=== PATIENT | female | born 1970 | race Caucasian/White ===

== ENCOUNTER 2017-03-20 11:07 | Emergency (ER) | payer OTHER ==
[2017-03-20 12:47] VITALS: BP 112/81
[2017-03-20] MEDS ORDERED: HYDROcodone/ACETAMIN 5-325 MG* 1 TAB PO ONE (13:27)
--- NOTE | 2017-03-20 13:35 | UC ---
Malachi Hurley Salem, scribed for Muna Kitchen MD on 03/20/17 at 1316 . Back Pain HPI - HPI Summary HPI Summary: Patient is 46 y/o female who presents to the with 10/10 lower right sided back pain and back spasms for the past 24 hours. Pt has a hx of back pain (in the same location), but reports the last time it flared up was a few months ago prior to this episode. She states that she usually uses heat and cyclobenzaprine for the pain. Pt took 800mg of Ibuprofen (last one at 0830 today ) and 10mg cyclobenzaprine (last one at 1300 today) for the pain this time. She reports pulling a muscle yesterday with unknown cause, but may have occurred while doing laundry or when lighting her 26lbs daughter. She denies numbness and tingling down her legs, but experiences both in her hip. She reports weakness in legs unchanged from baseline and denies any changes in GIGU. PCP has previously sent her to physical therapy for sx. Pt has a PMHx of Lupus. Patients medication reviewed this visit. - History of Current Complaint Chief Complaint: UCBackPain Stated Complaint: BACK INJURY Time Seen by Provider: 03/20/17 13:00 Hx Obtained From: Patient Onset/Duration: Gradual Onset, Lasting Days, Still Present Timing: Constant Severity Initially: Moderate Severity Currently: Moderate Pain Intensity: 10 Pain Scale Used: 0-10 Numeric Back Pain: Is Discrete @ - Lower right side. Aggravating: Nothing Alleviating: Nothing Associated Signs And Symptoms: Positive: Numbness, Tingling, Other - Weakness in legs unchanged from baseline. Numbness and tingling in hip. - Allergies/Home Medications Allergies/Adverse Reactions: Allergies Allergy/AdvReac Type Severity Reaction Status Date / Time No Known Allergies Allergy Verified 03/20/17 12:47 PMH/Surg Hx/FS Hx/Imm Hx Previously Healthy: No - Lupus.. Cancer History Of: Denies: Breast Cancer - Surgical History Surgical History: Yes - c section. hysterectomy Surgery Procedure, Year, and Place: partial hysterectomy 2011 - Family History Known Family History: Negative: Hypertension, Diabetes - Social History Alcohol Use: Occasionally Substance Use Type: None Smoking Status (MU): Never Smoked Tobacco Review of Systems Constitutional: Negative Skin: Negative Eyes: Negative ENT: Negative Respiratory: Negative Cardiovascular: Negative Gastrointestinal: Negative Genitourinary: Negative Motor: Negative, Decreased ROM Neurovascular: Negative Musculoskeletal: Other: - Lower back pain. Neurological: Weakness - Legs - unchanged from baseline., Numbness - Numbness and tingling in hip, but no radiation to legs All Other Systems Reviewed And Are Negative: Yes Physical Exam Triage Information Reviewed: Yes Appearance: Well-Appearing, Well-Nourished, Pain Distress - Pain with movement Vital Signs: Initial Vital Signs Temp 98.5 F 03/20/17 12:44 Pulse 90 03/20/17 12:44 Resp 20 03/20/17 12:44 BP 112/81 03/20/17 12:44 Pulse Ox 100 03/20/17 12:44 Vital Signs Reviewed: Yes Eyes: Positive: Conjunctiva Clear ENT: Positive: Hearing grossly normal Neck exam: Normal Neck: Positive: Supple, Nontender, No Lymphadenopathy Respiratory Exam: Normal Respiratory: Positive: No respiratory distress, No accessory muscle use Cardiovascular: Positive: RRR, No Murmur, Pulses Normal, Brisk Capillary Refill Abdomen Description: Positive: Nontender, No Organomegaly, Soft Musculoskeletal Exam: Other - No pain spinous process c/t/l/s; + TTP lumbar paraspinal R>L Full AROM upper ext b/l + SLE b/l LE with increased discomfort right + abduct, adduct hips + flex/ext knee, ankle Neurological Exam: Normal Neurological: Positive: Alert, Muscle Tone Normal, Other: - + gross sensation throughout b/l LE No clonus patellar, achilles Psychological Exam: Normal Psychological: Positive: Normal Response To Family Back Pain Course/Dx - Course Course Of Treatment: PT with low back pain, spasm. TTP paraspinal R>L. Distal intact neurologically. istop checked. Will Rx Kimberly. heat. stretch. Pt has flexeril. work note - Differential Dx/Diagnosis Provider Diagnoses: lumbar back pain Discharge - Discharge Plan Condition: Stable Disposition: HOME Prescriptions: Hydrocodone-Acetaminophen [Kimberly 5-325 mg] 1 - 2 tab PO Q6HR #15 tab MDD 8 Patient Education Materials: Low Back Strain (ED) Forms: *Work Release Referrals: Roger Moreno MD [Primary Care Provider] - Additional Instructions: - Alternate ibuprofen (Advil, Motrin) 600mg and Tylenol product (Tylenol or Kimberly) every 3 hours for pain. Take with food. Do NOT drive, operate machinery or drink alcohol while taking Kimberly. Take with food. Do NOT take for more than 4 -5 days. - Take muscle relaxer as prescribed - Do not drive or operate machinery with the muscle relaxant or Kimberly - Apply heat - 20 minutes at a time - then slow, gentle stretching exercises several times a day - Walk a short distance several times a day - Avoid heavy lifting - Contact your doctor to schedule a follow-up appointment. Contact your doctor or return to urgent care or the emergency department if you develop increased pain, difficulty controlling your bowels or bladder, loss of feeling or muscle strength or any other concerns The documentation as recorded by the Malachi lee Salem accurately reflects the service I personally performed and the decisions made by me, Muna Kitchen MD.
== END 2017-03-20 13:42 | disposition home or self-care (01) ==
LOC: UCEAST 11:07
DX: M54.5 Low back pain (principal)
CPT/HCPCS: 99212; G0463

== ENCOUNTER 2018-02-13 11:31 | Emergency (ER) | payer OTHER ==
--- OUTSIDE RECORDS SUMMARY | 2018-02-13 11:42 | XMS REPORT ---
:1970 External Reference #:[id number] Author Organization [facility] Address [address] [place] [address] Phone [phone] Care Team Providers Name Role Phone Roger Moreno MD Primary Care Physician Unavailable Payers Type Date Identification Numbers Payment Provider Subscriber Commercial Policy Number: [id number] [employer] Lena Denton PayID: [id number] [address] [address] [place] [address] Problems Date Description Provider Status Onset: 05/14/2012 Sjogren's syndrome Chip Hopkins M.D. Active Note: overlap to lupsu 2006 skin bx lupus sicca sx, SSA, SSB pos 2006, 2009, 2010 leukopenia, sun sensitive, arthritis, jennifer pos Onset: 01/24/2018 Trochanteric bursitis Ivan Patel MD Active Onset: 08/15/2012 Medications Correction (Current) Use Chip Hopkins M.D. Active Encounter Onset: 08/15/2012 Systemic lupus erythematosus Chip Hopkins M.D. Active Family History Date Family Member(s) Problem(s) Comments General Brother had spleen taken out due to bruising General Hypertension Social History Type Date Description Comments Lives With Spouse Occupation Currently Working Cigarette Use Never Smoked Cigarettes ETOH Use Occasionally consumes alcohol Smoking Patient has never smoked Exercise Type/Frequency Exercises regularly Allergies, Adverse Reactions, Alerts Date Description Reaction Status Severity Comments 06/13/2011 NKDA active Medications Medication Date Status Form Strength Qnty SIG Indications Ordering Provider Ibuprofen 01/25/ Active Tablets 800mg 60tab Take one Z79.899 Ramy 2015 s capsule/ Rafael, tablet M.D. by mouth twice daily as needed for pain Hydroxychloroquine 01/25/ Active Tablets 200mg 90tab Take 1 Z79.899 Ramy Sulfate 2015 s Tablet Rafael, Every M.D. Day For 1 Week Then Take 2 Tablets Every Day [facility] / Active Capsules 2000Unit Mejia, 0000 Lucia, MANAGER [employer] Prednisone 03/14/ Hx Tablets 5mg 70tab 4 qd x 1 Chip 2011 week, 3 Endo, 08/15/ qd x 1 M.D. 2011 week, 2 qd x 1 week, 1 qd x 1 week Methotrexate 11/14/ Hx Tablets 2.5mg 30tab 6 tabs Chip 2010 1x per Endo, week M.D. 2016 Folic Acid 11/14/ Hx Tablets 1mg 30tab 1 po qd Chip 2010 Endo, 01/25/ M.D. 2016 Hydroxychloroquine 06/13/ Hx Tablets 200mg 60tab 1 po bid Chip Sulfate 2010 Endo, M.D. 2016 Restasis 06/13/ Hx Emulsion 0.05% 2unit one gtts 2010 ou bid Endo, 01/25/ M.D. 2016 Prednisone 06/13/ Hx Tablets 5mg 70tab 4 qd x 1 2010, 3 Endo, 11/14/ qd x 1 M.D. 2010, 2 qd x 1 week, 1 qd x 1 week Ibuprofen / Hx Tablets 800mg 90tab po tid Chip prn Endo, M.D. 2016 Amoxicillin/Clavulan / Hx Tablets 500-125mg 20tab 1 po bid Unknown ate Potassium 0000 - s 2010 Cyclobenzaprine HCL / Hx Tablets 10mg 60tab one po Unknown 0000 - s tid prn 01/25/ spasm 2016 Oxycodone HCL 0000/ Hx Tablets 10mg 120ta 1 tablet Unknown 0000 - bs po q6hrs 01/25/ prn 2015 Tramadol HCL / Hx Tablets 50mg 120ta qid prn Unknown 0000 - bs 2015 Prednisone / Hx Tablets 20mg 27tab 3 tab by Unknown 0000 - s mouth 01/25/ every 2016 day x3 days then 2 tab daily for 5 days, then 1 tab daily for 5 days then 1/2 tab daily for 5 days Prednisone / Hx Tablets 20 1 po qd Unknown 0000 - 2015 Medications Administered in Office Medication Date Status Form Strength Qnty SIG Indications Ordering Provider Triamcinolone 01/24/ Administered Injection Zaneb (Kenalog) 2017 MD Amanda Vital Signs Date Vital Result Comment 01/24/2018 Height 67 inches 5'7" Weight 163.00 lb BP Systolic 118 mmHg BP Diastolic 70 mmHg Respiratory Rate 18 /min Pain Level 6 BMI (Body Mass Index) 25.5 kg/m2 01/26/2016 Height 67 inches 5'7" Weight 163.38 lb Heart Rate 74 /min BP Systolic Sitting 100 mmHg BP Diastolic Sitting 68 mmHg Body Temperature 98.3 F Pain Level 3 BMI (Body Mass Index) 25.6 kg/m2 08/15/2012 Height 67 inches 5'7" Weight 155.00 lb Heart Rate 82 /min BP Systolic Sitting 108 mmHg BP Diastolic Sitting 66 mmHg BMI (Body Mass Index) 24.3 kg/m2 05/14/2012 Height 67 inches 5'7" Weight 155.00 lb Heart Rate 78 /min BP Systolic Sitting 121 mmHg BP Diastolic Sitting 68 mmHg BMI (Body Mass Index) 24.3 kg/m2 02/12/2012 Height 67 inches 5'7" Weight 151.00 lb Heart Rate 74 /min BP Systolic Sitting 120 mmHg BP Diastolic Sitting 71 mmHg BMI (Body Mass Index) 23.6 kg/m2 11/14/2011 Height 67 inches 5'7" Weight 149.00 lb Heart Rate 78 /min BP Systolic Sitting 123 mmHg BP Diastolic Sitting 71 mmHg BMI (Body Mass Index) 23.3 kg/m2 06/13/2011 Height 67 inches 5'7" Weight 152.00 lb Heart Rate 64 /min BP Systolic 110 mmHg BP Diastolic 70 mmHg BMI (Body Mass Index) 23.8 kg/m2 Results Test Date Test Result H/L Range Note Laboratory test finding 02/04/2016 Vitamin D, 1,25 48 pg/mL 18-78 1 Dihydroxy Urine Culture And 02/04/2016 Urine Culture SEE RESULT BELOW 2 Sensitivities Urinalysis Profile 02/04/2016 Urine Color Yellow Urine Appearance Clear Urine Specific [place] 1.025 1.010-1.030 Urine pH 5.0 5-9 Urine Urobilinogen Negative Negative Urine Ketones Negative Negative Urine Protein Negative Negative Urine Leukocytes Negative Negative Urine Blood Negative Negative Urine Nitrite Negative Negative Urine Bilirubin Negative Negative Urine Glucose Negative Negative Laboratory test finding 02/04/2016 Anti Ssa/Ro 2.6 U 3 Anti SSB LA >8.0 U 4 C Reactive Protein 2.18 mg/L < 5.00 5 Complement C3 92 mg/dL 75 - 175 6 Complement C4 6 mg/dL 14 - 40 7 Anti Dna (Double Stranded Dna) Negative Negative Phospholipid Igm AB <4.0 MPL 8 CBC Auto Diff 02/04/2016 White Blood Count 5.6 10^3/uL 3.5-10.8 Red Blood Count 4.41 10^6/uL 4.0-5.4 Hemoglobin 12.1 g/dL 12.0-16.0 Hematocrit 37 % 35-47 Mean Corpuscular Volume 85 fL 80-97 Mean Corpuscular Hemoglobin 28 pg 27-31 Mean Corpuscular HGB Conc 33 g/dL 31-36 Red Cell Distribution Width 13 % 10.5-15 Platelet Count 248 10^3/uL 150-450 Mean Platelet Volume 8 um3 7.4-10.4 Abs Neutrophils 3.8 10^3/uL 1.5-7.7 Abs Lymphocytes 1.1 10^3/uL 1.0-4.8 Abs Monocytes 0.4 10^3/uL 0-0.8 Abs Eosinophils 0.3 10^3/uL 0-0.6 Abs Basophils 0 10^3/uL 0-0.2 Abs Nucleated RBC 0.01 10^3/uL Granulocyte % 67.7 % 38-83 Lymphocyte % 19.8 % Low 25-47 Monocyte % 6.7 % 1-9 Eosinophil % 5.1 % 0-6 Basophil % 0.7 % 0-2 Nucleated Red Blood Cells % 0.2 Comp Metabolic Panel 02/04/2016 Sodium 137 mmol/L 133-145 Potassium 4.3 mmol/L 3.5-5.0 Chloride 104 mmol/L 101-111 Co2 Carbon Dioxide 28 mmol/L 22-32 Anion Gap 5 mmol/L 2-11 Glucose 83 mg/dL 70-100 Blood Urea Nitrogen 14 mg/dL 6-24 Creatinine 0.66 mg/dL 0.51-0.95 BUN/Creatinine Ratio 21.2 High 8-20 Calcium 8.9 mg/dL 8.6-10.3 Total Protein 6.4 g/dL 6.4-8.9 Albumin 4.3 g/dL 3.2-5.2 Globulin 2.1 g/dL 2-4 Albumin/Globulin Ratio 2.0 1-3 Total Bilirubin 0.50 mg/dL 0.2-1.0 Alkaline Phosphatase 54 U/L 34-104 Alt 25 U/L 7-52 Ast 30 U/L 13-39 Egfr Non- 97.3 >60 Egfr 125.1 >60 9 Laboratory test 07/13/2012 C Reactive Protein < 0.5 mg/dL Less Than 0.5 finding CBC With Manual Diff 07/13/2012 White Blood Count 5.0 CUMM 4.8-10.8 Red Cell Count 3.97 CUMM Low 4.2-5.4 Hemoglobin 12.1 g/dL 12.0-16.0 Hematocrit 35 % 35-47 Mean Corpuscular Volume 88 um3 79-97 Mean Corpuscular Hemoglob 31 pg 27-31 Mean Corpuscular HGB Cone 35 g/dL 32-36 Redcell Distribution WDTH 13 % 10.5-15 Platelet Count 193 CUMM 150-450 Mean Platelet Volume 8.1 um3 7.4-10.4 Absolute Neutrophil Count 3.7 1.5-7.7 Polysegmented Neutrophil 72 % 38-83 Band Neutrophil 1 % 0-8 Lymphocyte 16 % Low 25-47 Monocyte 7 % 0-13 Eosinophil 3 % 0-6 Basophil 1 % 0-2 RBC Morphology NORMAL Laboratory test finding 07/13/2012 Erythrocyte Sed Rate 14 MM/HR 0-15 Liver Function Panel 07/13/2012 Total Protein 5.6 GM/DL Low 6.2-8.1 Albumin 3.9 GM/DL 3.6-5.4 Globulin 1.7 GM/DL Low 2-4 Albumin/Globulin Ratio 2.3 1-3 Bilirubin Total 0.8 mg/dL 0.4-1.5 10 Bilirubin Direct 0.1 mg/dL 0.1-0.5 Indirect Bilirubin 0.7 mg/dL 0.3-1.0 11 Alkaline Phosphatase 43 U/L 30-110 Alt (SGPT) 19 U/L 14-54 Ast (Sgot) 25 U/L 12-42 Basic Metabolic Panel 07/13/2012 Sodium 134 mmol/L Low 135-145 Potassium 4.0 mmol/L 3.5-5.0 Chloride 103 mmol/L 101-111 Co2 (Carbon Dioxide) 26.0 mmol/L 22-32 Anion Gap 5.0 mmol/L 2-11 12 Glucose 74 mg/dL 70-100 BUN 11 mg/dL 6-24 Creatinine 0.6 mg/dL 0.50-1.40 One Over Creatinine 1.66 BUN/Creatinine Ratio 18.3 8-20 Calcium 8.7 mg/dL 8.1-9.9 eGFR Non- 110.2 > 60 eGFR 141.7 > 60 13 Laboratory test finding 05/13/2012 Erythrocyte Sed Rate 10 MM/HR 0-15 CBC With Manual Diff 05/13/2012 White Blood Count 5.6 CUMM 4.8-10.8 Red Cell Count 4.06 CUMM Low 4.2-5.4 Hemoglobin 12.3 g/dL 12.0-16.0 Hematocrit 36 % 35-47 Mean Corpuscular Volume 88 um3 79-97 Mean Corpuscular Hemoglob 30 pg 27-31 Mean Corpuscular HGB Cone 34 g/dL 32-36 Redcell Distribution WDTH 13 % 10.5-15 Platelet Count 235 CUMM 150-450 Mean Platelet Volume 8.3 um3 7.4-10.4 Absolute Neutrophil Count 4.8 1.5-7.7 Polysegmented Neutrophil 86 % High 38-83 Lymphocyte 10 % Low 25-47 Monocyte 2 % 0-13 Eosinophil 2 % 0-6 RBC Morphology NORMAL Laboratory test 05/13/2012 C Reactive Protein < 0.5 mg/dL Less Than 0.5 finding Liver Function Panel 05/13/2012 Total Protein 5.9 GM/DL Low 6.2-8.1 Albumin 4.0 GM/DL 3.6-5.4 Globulin 1.9 GM/DL Low 2-4 Albumin/Globulin Ratio 2.1 1-3 Bilirubin Total 0.9 mg/dL 0.4-1.5 14 Bilirubin Direct 0.1 mg/dL 0.1-0.5 Indirect Bilirubin 0.8 mg/dL 0.3-1.0 15 Alkaline Phosphatase 39 U/L 30-110 Alt (SGPT) 22 U/L 14-54 Ast (Sgot) 30 U/L 12-42 Basic Metabolic Panel 05/13/2012 Sodium 132 mmol/L Low 135-145 Potassium 4.2 mmol/L 3.5-5.0 Chloride 104 mmol/L 101-111 Co2 (Carbon Dioxide) 26.0 mmol/L 22-32 Anion Gap 2.0 mmol/L 2-11 16 Glucose 79 mg/dL 70-100 BUN 13 mg/dL 6-24 Creatinine 0.7 mg/dL 0.50-1.40 One Over Creatinine 1.42 BUN/Creatinine Ratio 18.6 8-20 Calcium 8.3 mg/dL 8.1-9.9 eGFR Non- 92.2 > 60 eGFR 118.6 > 60 17 CBC With Manual Diff 04/04/2012 White Blood Count 10.6 CUMM 4.8-10.8 Red Cell Count 3.99 CUMM Low 4.2-5.4 Hemoglobin 12.2 g/dL 12.0-16.0 Hematocrit 35 % 35-47 Mean Corpuscular Volume 89 um3 79-97 Mean Corpuscular Hemoglob 31 pg 27-31 Mean Corpuscular HGB Cone 34 g/dL 32-36 Redcell Distribution WDTH 14 % 10.5-15 Platelet Count 256 CUMM 150-450 Mean Platelet Volume 7.8 um3 7.4-10.4 Polysegmented Neutrophil 93 % High 38-83 Band Neutrophil 2 % 0-8 Lymphocyte 2 % Low 25-47 Monocyte 2 % 0-13 Basophil 1 % 0-2 Absolute Neutrophil Count 10.00 RBC Morphology NORMAL Laboratory test finding 04/04/2012 Erythrocyte Sed Rate 9 MM/HR 0-15 Basic Metabolic Panel 04/04/2012 Sodium 138 mmol/L 135-145 Potassium 4.4 mmol/L 3.5-5.0 Chloride 104 mmol/L 101-111 Co2 (Carbon Dioxide) 25.0 mmol/L 22-32 Anion Gap 9.0 mmol/L 2-11 18 Glucose 121 mg/dL High 70-100 BUN 14 mg/dL 6-24 Creatinine 0.8 mg/dL 0.50-1.40 One Over Creatinine 1.25 BUN/Creatinine Ratio 17.5 8-20 Calcium 9.1 mg/dL 8.1-9.9 eGFR Non- 79.4 > 60 eGFR 102.2 > 60 19 Liver Function Panel 04/04/2012 Total Protein 6.3 GM/DL 6.2-8.1 Albumin 4.5 GM/DL 3.6-5.4 Globulin 1.8 GM/DL Low 2-4 Albumin/Globulin Ratio 2.5 1-3 Bilirubin Total 0.8 mg/dL 0.4-1.5 20 Bilirubin Direct 0.2 mg/dL 0.1-0.5 Indirect Bilirubin 0.6 mg/dL 0.3-1.0 21 Alkaline Phosphatase 41 U/L 30-110 Alt (SGPT) 19 U/L 14-54 Ast (Sgot) 22 U/L 12-42 Laboratory test 04/04/2012 C Reactive Protein < 0.5 mg/dL Less Than 0.5 finding Basic Metabolic Panel 03/22/2012 Sodium 137 mmol/L 135-145 Potassium 4.3 mmol/L 3.5-5.0 Chloride 104 mmol/L 101-111 Co2 (Carbon Dioxide) 27.0 mmol/L 22-32 Anion Gap 6.0 mmol/L 2-11 22 Glucose 101 mg/dL High 70-100 BUN 12 mg/dL 6-24 Creatinine 0.7 mg/dL 0.50-1.40 One Over Creatinine 1.42 BUN/Creatinine Ratio 17.1 8-20 Calcium 8.4 mg/dL 8.1-9.9 eGFR Non- 92.7 > 60 eGFR 119.2 > 60 23 Liver Function Panel 03/22/2012 Total Protein 5.8 GM/DL Low 6.2-8.1 Albumin 3.9 GM/DL 3.6-5.4 Globulin 1.9 GM/DL Low 2-4 Albumin/Globulin Ratio 2.1 1-3 Bilirubin Total 0.8 mg/dL 0.4-1.5 24 Bilirubin Direct 0.1 mg/dL 0.1-0.5 Indirect Bilirubin 0.7 mg/dL 0.3-1.0 25 Alkaline Phosphatase 50 U/L 30-110 Alt (SGPT) 21 U/L 14-54 Ast (Sgot) 32 U/L 12-42 Laboratory test 03/22/2012 C Reactive Protein < 0.5 mg/dL Less Than 0.5 finding CBC With Manual Diff 03/22/2012 White Blood Count 5.1 CUMM 4.8-10.8 Red Cell Count 4.12 CUMM Low 4.2-5.4 Hemoglobin 12.4 g/dL 12.0-16.0 Hematocrit 37 % 35-47 Mean Corpuscular Volume 89 um3 79-97 Mean Corpuscular Hemoglob 30 pg 27-31 Mean Corpuscular HGB Cone 34 g/dL 32-36 Redcell Distribution WDTH 14 % 10.5-15 Platelet Count 248 CUMM 150-450 Mean Platelet Volume 8.0 um3 7.4-10.4 Polysegmented Neutrophil 80 % 38-83 Band Neutrophil 3 % 0-8 Lymphocyte 14 % Low 25-47 Monocyte 2 % 0-13 Atypical Lymph 1 % 0-6 Absolute Neutrophil Count 4.20 RBC Morphology NORMAL Laboratory test finding 03/22/2012 Erythrocyte Sed Rate 10 MM/HR 0-15 1 Test Performed by: [place] [address] Welding Foreman: Otis Herman II, M.D., Ph.D. 2 SEE RESULT BELOW Name: LENA DENTON : [address]: Ramy Hall MD Acct: [id number] Unit: [id number] AGE: 45 Location: LAB Re02/04/16 SEX: F Status: REG REF SPEC: [id number] MAHSA: 02/04/16-[address]: Ramy Hall MD REQ: [id number] RECD: 02/04/16 STATUS: COMP _ SOURCE: URINE SPDC: ORDERED: Urine Culture Procedure Result Reported Site Urine Culture Final 02/05/16- 1314 ML No Growth (<1,000 CFU/mL) * ML - MAIN LAB ([facility]) . END OF REPORT * ML=Testing performed at Main Lab DEPARTMENT OF PATHOLOGY, [address] [place] [address] Hema Matias M.D. Director [facility] # [id number] 3 Interpretation: Positive (>=1.0) REFERENCE VALUE <1.0 (Negative) Test Performed by: [address] [address] Welding Foreman: Otis Herman II, M.D., Ph.D. 4 Interpretation: Positive (>=1.0) REFERENCE VALUE <1.0 (Negative) Test Performed by: [place] [address] Welding Foreman: Otis Herman II, M.D., Ph.D. 5 Acute inflammation: >10.00 6 Test Performed by: [place] [address] Welding Foreman: Otis Herman II, M.D., Ph.D. 7 Test Performed by: [place] [address] Welding Foreman: Otis Herman II, M.D., Ph.D. 8 REFERENCE VALUE <10.0 (Negative) Test Performed by: [place] [address] Welding Foreman: Otis Heramn II, M.D., Ph.D. 9 Because ethnic data is not always readily available, this report includes an eGFR for both -Americans and non- Americans. The National Kidney Disease Education Program (NKDEP) does not endorse the use of the MDRD equation for patients that are not between the ages of 18 and 70, are , have extremes of body size, muscle mass, or nutritional status, or are non- or non-. According to the National Kidney Foundation, irrespective of diagnosis, the stage of the disease is based on the level of kidney function: Stage Description GFR(mL/min/1.73 m(2)) 1 Kidney damage with normal or decreased GFR 90 2 Kidney damage with mild decrease in GFR 60-89 3 Moderate decrease in GFR 30-59 4 Severe decrease in GFR 15-29 5 Kidney failure <15 (or dialysis) 10 A metabolite of Naproxen, O-desmethylnaproxen, has been shown to interfere with the Jendrassik-Debi method for measuring total bilirubin. Samples from patients who have taken Naproxen have shown spurious elevation in total bilirubin levels. 11 Please note updated reference range, effective 06/16/10 12 Anion gap measurement may be of limited value in the presence of any alkalosis, especially in a combined acid base disorder. . 13 Because ethnic data is not always readily available, this report includes an eGFR for both -Americans and non- Americans. The National Kidney Disease Education Program (NKDEP) does not endorse the use of the MDRD equation for patients that are not between the ages of 18 and 70, are , have extremes of body size, muscle mass, or nutritional status, or are non- or non-. According to the National Kidney Foundation, irrespective of diagnosis, the stage of the disease is based on the level of kidney function: Stage Description GFR(mL/min/1.73 m(2)) 1 Kidney damage with normal or decreased GFR 90 2 Kidney damage with mild decrease in GFR 60-89 3 Moderate decrease in GFR 30-59 4 Severe decrease in GFR 15-29 5 Kidney failure <15 (or dialysis) 14 A metabolite of Naproxen, O-desmethylnaproxen, has been shown to interfere with the Jendrassik-Debi method for measuring total bilirubin. Samples from patients who have taken Naproxen have shown spurious elevation in total bilirubin levels. 15 Please note updated reference range, effective 06/16/10 16 Anion gap measurement may be of limited value in the presence of any alkalosis, especially in a combined acid base disorder. . 17 Because ethnic data is not always readily available, this report includes an eGFR for both -Americans and non- Americans. The National Kidney Disease Education Program (NKDEP) does not endorse the use of the MDRD equation for patients that are not between the ages of 18 and 70, are , have extremes of body size, muscle mass, or nutritional status, or are non- or non-. According to the National Kidney Foundation, irrespective of diagnosis, the stage of the disease is based on the level of kidney function: Stage Description GFR(mL/min/1.73 m(2)) 1 Kidney damage with normal or decreased GFR 90 2 Kidney damage with mild decrease in GFR 60-89 3 Moderate decrease in GFR 30-59 4 Severe decrease in GFR 15-29 5 Kidney failure <15 (or dialysis) 18 Anion gap measurement may be of limited value in the presence of any alkalosis, especially in a combined acid base disorder. . 19 Because ethnic data is not always readily available, this report includes an eGFR for both -Americans and non- Americans. The National Kidney Disease Education Program (NKDEP) does not endorse the use of the MDRD equation for patients that are not between the ages of 18 and 70, are , have extremes of body size, muscle mass, or nutritional status, or are non- or non-. According to the National Kidney Foundation, irrespective of diagnosis, the stage of the disease is based on the level of kidney function: Stage Description GFR(mL/min/1.73 m(2)) 1 Kidney damage with normal or decreased GFR 90 2 Kidney damage with mild decrease in GFR 60-89 3 Moderate decrease in GFR 30-59 4 Severe decrease in GFR 15-29 5 Kidney failure <15 (or dialysis) 20 A metabolite of Naproxen, O-desmethylnaproxen, has been shown to interfere with the Jendrassik-Mayflower method for measuring total bilirubin. Samples from patients who have taken Naproxen have shown spurious elevation in total bilirubin levels. 21 Please note updated reference range, effective 06/16/10 22 Anion gap measurement may be of limited value in the presence of any alkalosis, especially in a combined acid base disorder. . 23 Because ethnic data is not always readily available, this report includes an eGFR for both -Americans and non- Americans. The National Kidney Disease Education Program (NKDEP) does not endorse the use of the MDRD equation for patients that are not between the ages of 18 and 70, are , have extremes of body size, muscle mass, or nutritional status, or are non- or non-. According to the National Kidney Foundation, irrespective of diagnosis, the stage of the disease is based on the level of kidney function: Stage Description GFR(mL/min/1.73 m(2)) 1 Kidney damage with normal or decreased GFR 90 2 Kidney damage with mild decrease in GFR 60-89 3 Moderate decrease in GFR 30-59 4 Severe decrease in GFR 15-29 5 Kidney failure <15 (or dialysis) 24 A metabolite of Naproxen, O-desmethylnaproxen, has been shown to interfere with the Jendrassik-Mayflower method for measuring total bilirubin. Samples from patients who have taken Naproxen have shown spurious elevation in total bilirubin levels. 25 Please note updated reference range, effective 06/16/10 Procedures Date CPT Code Description Status 01/24/2018 99850 Inject/Drain Joint/Bursa Major Completed Encounters Type Date Location Provider CPT E/M Dx Office Visit 01/26/2016 [facility] Services Ramy Hall M.D. 96566 M35.01 8:00a [facility] Z79.899 M25.50 K11.23 Office Visit 08/15/2012 10:40a [facility] Chip Hopkins M.D. 70978 710.2 [facility] 710.0 V58.69 Office Visit 05/14/2012 9:40a [facility] Chip Hopkins M.D. 55589 710.2 [facility] V58.69 710.0 527.2 782.1 511.0 Office Visit 02/12/2012 10:20a [facility] Chip Hopkins M.D. 50438 710.2 [facility] V58.69 719.49 Office Visit 11/14/2011 10:40a [facility] Chip Hopkins M.D. 70999 710.2 [facility] V58.69 710.0 Office Visit 06/13/2011 4:00p [facility] Chip Hopkins M.D. 59986 710.2 [facility] V58.69 Plan of Care Future Appointment(s):03/26/2018 9:00 am - Ivan Patel [facility]/07/2018 8:20 am - Ramy Hall M.D. at [facility]01/24/2018 - Ivna Patel, MDM70.61 Trochanteric bursitis, right hipNew Therapy:Physical TherapyFollow up:Follow up: 8 weeks
[2018-02-13 13:46] VITALS: BP 00/00
--- NOTE | 2018-02-13 14:42 | UC ---
Truong Hurley Jennifer, [facility] on 02/13/18 at 1348 . Complaint Female HPI - HPI Summary HPI Summary: In Room: The patient is a 47 year old female who complains of urinary frequency and dysuria for one day. The patient last had a UTI 14 years ago. She denies fever, bladder pain, nausea, vomiting, and diarrhea. The patient reports that she has chronic back pain and urinating hurts. note: frequency and burning for one day. Jeri stable, temp 99, 7/10 pain. Partial hysterectomy 2011. Visit history non-contributory to current complaint. She has no known allergies. Nurse note: urinary frequency and burning. since yesterday - History Of Current Complaint Chief Complaint: UCGU Stated Complaint: URINARY COMPLAINT Time Seen by Provider: 02/13/18 13:42 Hx Obtained From: Patient Hx Last Menstrual Period: 5 years Onset/Duration: Sudden Onset, Lasting Days - one day, Still Present Timing: Constant Severity Initially: Moderate Severity Currently: Moderate Pain Intensity: 7 Pain Scale Used: 0-10 Numeric Character: Burning Aggravating Factor(s): Nothing Alleviating Factor(s): Nothing - Allergies/Home Medications Allergies/Adverse Reactions: Allergies Allergy/AdvReac Type Severity Reaction Status Date / Time No Known Allergies Allergy Verified 02/13/18 11:50 Home Medications: Home Medications Ibuprofen TAB* [Motrin TAB* 800 MG] 800 mg PO TID 02/13/18 [History Confirmed ] PMH/Surg Hx/FS Hx/Imm Hx Previously Healthy: Yes - Hx Lupus. NEG: Heart, lung disease - Surgical History Surgical History: Yes Surgery Procedure, Year, and Place: partial hysterectomy 2011, uterus removed, post delivery hemmorhaging - Family History Known Family History: Positive: Hypertension - Father Negative: Diabetes - Social History Occupation: Employed Full-time - [employer] Alcohol Use: Occasionally Substance Use Type: None Smoking Status (MU): Never Smoked Tobacco Review of Systems Constitutional: Negative - Fever Gastrointestinal: Negative - Nausesa, vomiting, diarrhea Genitourinary: Dysuria, Frequency All Other Systems Reviewed And Are Negative: Yes Physical Exam - Summary Physical Exam Summary: Appearance: The patient is well-appearing, is in no pain distress, and is well- nourished. Eyes: Conjunctiva are clear. ENT: The hearing is grossly normal, the pharynx is normal, and the TMs are normal. There is no muffled or hoarse voice. Neck: The neck is supple and there is no lymphadenopathy. Respiratory: The chest is nontender. The lungs are clear, there are normal breath sounds, and there is no respiratory distress. Cardiovascular: Heart is regular rate and rhythm. There is no murmur. Abdomen: NO CVA TENDERNESS. NO SUPRAPUBIC TENDERNESS. The abdomen is soft and nontender. There is no organomegaly. Bowel sounds: present Musculoskeletal: Strength is intact. The patient moves all extremities. Neurological: The patient is alert. Psychological: The patient displays age appropriate behavior Skin: Negative for rashes. Triage Information Reviewed: Yes Vital Signs: Initial Vital Signs Temp 99 F 02/13/18 11:45 Pulse 84 02/13/18 11:45 Resp 16 02/13/18 11:45 BP 102/71 02/13/18 11:45 Pulse Ox 99 02/13/18 11:45 Vital Signs Reviewed: Yes Complaint Female Dx - Course Course Of Treatment: 47 year old female with Lupus presents with one day history of dysuria. Positive UA. No recent UTI. Started on Bactrim and Pyridium. Diagnosed with UTI. Patient has been given an antibiotic because findings on physical examination and health history. The risks and benefits of antibiotic treatment have been discussed and patient has voiced understanding of these risks including the possibility of developing clostridium difficile enterocolitis. Medications have been included in the original chart and reviewed. - Differential Dx/Diagnosis Provider Diagnoses: UTI Discharge - Sign-Out/Discharge Documenting (check all that apply): Discharge - Discharge Plan Condition: Stable Disposition: HOME Prescriptions: Sulfamethox/Trimethoprim DS* [Bactrim DS 800/160 TAB*] 1 tab PO BID #10 tab Patient Education Materials: Phenazopyridine (By mouth), Urinary Tract Infection in Women (ED) Referrals: Roger Moreno MD [Primary Care Provider] - Additional Instructions: WE DISCUSSED: 1. You have a urinary tract infection. 2. I have given you an antibiotic and a medicine to numb your urine. Take one pill twice a day for 5 days. 3. You should be improving in a day or two. If not, call us. 4. Call at any time for increased pain, temperature or new symptoms. The documentation as recorded by the scribe, Guerin,Michelle accurately reflects the service I personally performed and the decisions made by me, Alfie Merritt MD.
--- NOTE | 2018-02-15 15:02 | UC ---
- Progress Note Progress Note: Urine culture with E. coli. Sensitive to Bactrim. No change. Discharge - Sign-Out/Discharge Documenting (check all that apply): Post-Discharge Follow Up - Discharge Plan Prescriptions: Sulfamethox/Trimethoprim DS* [Bactrim DS 800/160 TAB*] 1 tab PO BID #10 tab Additional Instructions: WE DISCUSSED: 1. You have a urinary tract infection. 2. I have given you an antibiotic and a medicine to numb your urine. Take one pill twice a day for 5 days. 3. You should be improving in a day or two. If not, call us. 4. Call at any time for increased pain, temperature or new symptoms.
== END 2018-02-13 13:58 | disposition home or self-care (01) ==
LOC: UCEAST 11:31
DX: N39.0 Urinary tract infection, site not specified (principal)
CPT/HCPCS: 81003; 87077; 87086; 87186; 99212; G0463

== ENCOUNTER 2018-03-08 08:40 | Emergency (ER) | payer OTHER ==
[2018-03-08] MEDS ORDERED: NS 0.9% 1000 ML* 1,000 ML IV ONE (08:58)
[2018-03-08] MEDS ORDERED: Famotidine IV* 10 MG/ML 2 ML (20 mg) IV SLOW PU ONE (08:59)
[2018-03-08] MEDS ORDERED: diPHENhydraMINE IV* 50 MG/ML 1 ml VIAL (BENADRYL) IV ONE (08:59)
[2018-03-08] MEDS ORDERED: Dexamethasone IV* 4 MG/ML 5 ML VIAL (20 MG) IVPB ONE (08:59)
[2018-03-08 09:33] LABS: ABS Basophils 0 10^3/ul (0-0.2); ABS Eosinophils 0.3 10^3/ul (0-0.6); ABS Lymphocytes 0.7 10^3/ul (1.0-4.8); ABS Monocytes 0.3 10^3/ul (0-0.8); ABS Neutrophils 2.6 10^3/ul (1.5-7.7); ABS Nucleated RBC 0 10^3/ul; Eosinophil % 7.3 % (0-6); Hematocrit 38 % (35-47); Hemoglobin 13.1 g/dl (12.0-16.0); Lymphocyte % 17.5 % (25-47); Mean Corpuscular HGB Conc 34 g/dl (31-36); Mean Corpuscular Hemoglobin 29 pg (27-31); Mean Corpuscular Volume 84 fL (80-97); Mean Platelet Volume 7.6 um3 (7.4-10.4); Nucleated Red Blood Cells % 0.1; Platelet Count 206 10^3/ul (150-450); Red Blood Count 4.51 10^6/ul (4.0-5.4); Red Cell Distribution Width 14 % (10.5-15); White Blood Count 3.9 10^3/ul (3.5-10.8)
[2018-03-08 09:59] LABS: EGFR Non-African American 63.3 (>60)
[2018-03-08 11:57] VITALS: BP 92/55
[2018-03-08 12:14] LABS: Urine Appearance Clear; Urine Blood Negative (Negative); Urine Color Amber; Urine Ketones Negative (Negative); Urine Protein Negative (Negative); Urine Specific Gravity 1.015 (1.010-1.030); Urine Urobilinogen Positive (Negative)
--- NOTE | 2018-03-08 16:31 | ED ---
Noe Hurley Angela, scribed for Brodie Yeung MD on 03/08/18 at 0905 . Allergic Reaction/Systemic - HPI Summary HPI Summary: This pt is a 47 y/o female presenting to [facility] for allergic reaction after taking Bactrim. Pt reports she was started on Bactrim for a UTI 3 days ago. Pt states that since she has started Bactrim pt has been having headaches and weakness. She additionally reports intense pressure on the back of her knees when standing. This morning pt notes she woke up with pruritic hives. Denies sore throat, swelling in tongue, swelling of the lips, difficulty swallowing, SOB, throat tightening. - History of Current Complaint Chief Complaint: EDAllergicReaction Time Seen by Provider: 03/08/18 08:48 Hx Obtained From: Patient Hx Last Menstrual Period: 5 years Onset/Duration: Started days ago, Still Present Timing: Lasting Days Severity Currently: Severe Pain Intensity: 10 - headache Pain Scale Used: 0-10 Numeric Location: Discrete @ - head Character: Pain, Hives Aggravating Factor(s): Nothing Alleviating Factor(s): Nothing Associated Signs And Symptoms: Positive: Rash - hives, Other: - POS: headache, weakness. Negative: Chest Pain, Cough Wheezing, Difficulty Breathing, Hoarseness, Throat Tightening - Allergies/Home Medications Allergies/Adverse Reactions: Allergies Allergy/AdvReac Type Severity Reaction Status Date / Time No Known Allergies Allergy Verified 03/08/18 08:43 PMH/Surg Hx/FS Hx/Imm Hx Endocrine/Hematology History: Denies: Hx Diabetes Cardiovascular History: Denies: Hx Hypertension History: Reports: Other Problems/Disorders - UTI - Cancer History Hx Chemotherapy: No Hx Radiation Therapy: No - Surgical History Surgery Procedure, Year, and Place: partial hysterectomy 2011, uterus removed, post delivery hemmorhaging Infectious Disease History: No Infectious Disease History: Denies: Traveled Outside the [place] in Last 30 Days - Family History Known Family History: Positive: Hypertension - Father Negative: Diabetes - Social History Alcohol Use: Occasionally Substance Use Type: Reports: None Smoking Status (MU): Never Smoked Tobacco Review of Systems Negative: Fever, Chills Negative: Sore Throat, Other - swelling in tongue or lips, diificulty swallowing Negative: Shortness Of Breath Skin: Other - hives Positive: Headache, Weakness All Other Systems Reviewed And Are Negative: Yes Physical Exam - Summary Physical Exam Summary: VITAL SIGNS: Reviewed. GENERAL: Patient is a well-developed and nourished female who is lying comfortable in the stretcher. Patient is not in any acute distress. HEAD AND FACE: No signs of trauma. No ecchymosis, hematomas or skull depressions. No sinus tenderness. EYES: PERRLA, EOMI x 2, No injected conjunctiva, no nystagmus. EARS: Hearing grossly intact. Ear canals and tympanic membranes are within normal limits. MOUTH: Oropharynx within normal limits. No lip or tongue swelling. No difficulty swallowing. There are white spots in the pharynx and some erythema. NECK: Supple, trachea is midline, no adenopathy, no JVD, no carotid bruit, no c- spine tenderness, neck with full ROM. CHEST: Symmetric, no tenderness at palpation LUNGS: Clear to auscultation bilaterally. No wheezing or crackles. No shortness of breath. CVS: Regular rate and rhythm, S1 and S2 present, no murmurs or gallops appreciated. ABDOMEN: Soft, non-tender. No signs of distention. No rebound no guarding, and no masses palpated. Bowel sounds are normal. EXTREMITIES: FROM in all major joints, no edema, no cyanosis or clubbing. NEURO: Alert and oriented x 3. No acute neurological deficits. Speech is normal and follows commands. SKIN: Dry and warm. Hives in upper and lower extremities. Triage Information Reviewed: Yes Vital Signs On Initial Exam: Initial Vitals Temp Pulse Resp BP Pulse Ox 97.5 F 70 16 118/73 98 03/08/18 08:43 03/08/18 08:43 03/08/18 08:43 03/08/18 08:43 03/08/18 08:43 Vital Signs Reviewed: Yes Diagnostics - Vital Signs Vital Signs Temp Pulse Resp BP Pulse Ox 03/08/18 08:43 97.5 F 70 16 118/73 98 - Laboratory Result Diagrams: 03/08/18 09:22 03/08/18 09:22 Lab Statement: Any lab studies that have been ordered have been reviewed, and results considered in the medical decision making process. Re-Evaluation - Re-Evaluation First Eval Re-Evaluation Time: 10:54 Change: Improved Comment: Pt is feeling better. Pt has no symptoms. Her itching and hives have resolved. Pt still has no swelling of tongue or lips. She has no SOB or difficulty swallowing. Pt will be discharged home. Allergic Reaction Course/Dx - Course Assessment/Plan: This pt is a 47 y/o female presenting to [facility] for allergic reaction after taking Bactrim. Pt reports she was started on Bactrim for a UTI 3 days ago. Pt states that since she has started Bactrim pt has been having headaches and weakness. She additionally reports intense pressure on the back of her knees when standing. This morning pt notes she woke up with hives. Denies sore throat, swelling in tongue, swelling of the lips, difficulty swallowing, SOB, throat tightening. Initially the pt has pruritic hives in the upper and lower extremities. Pt has no swelling of the lips or tongue, no difficulty swallowing, no throat tightening, and no difficulty breathing. Test results without any significant abnormalities except for glucose of 111, CRP of 78.16. Rapid strep test is negative. In the ED course the pt was given IV fluids, Benadryl, Decadron, and Pepcid. After these medications the pt is feeling better and she is asymptomatic. Pts itching and hives have resolved. Pt still has no tongue or lip swelling. She has no shortness of breath or difficulty swallowing. She will be discharged home with follow up from her PCP. Pt will be discharged home with prescriptions for Benadryl, Pepcid, and prednisone. She is instructed to return to the ED for any worsening or new symptoms. Pt is hemodynamically stable, alert and oriented x3. Dx: allergic reaction to Bactrim - Diagnoses Provider Diagnoses: Allergic reaction Discharge - Sign-Out/Discharge Documenting (check all that apply): Discharge - discharge to home - Discharge Plan Condition: Stable Disposition: HOME Prescriptions: diPHENhydraMINE PO* [Benadryl PO 25 MG TAB*] 25 mg PO TID PRN #30 tab PRN Reason: Allergy Symptoms Famotidine TAB* [Pepcid 20 MG TAB*] 20 mg PO DAILY #10 tab predniSONE TAB* [Deltasone TAB*] 40 mg PO DAILY #8 tab Patient Education Materials: General Allergic Reaction (ED) Referrals: Roger Moreno MD [Primary Care Provider] - Additional Instructions: Please follow up with your primary care provider. RETURN TO THE ED FOR ANY NEW OR WORSENING SYMPTOMS. The documentation as recorded by the Noe lee Angela accurately reflects the service I personally performed and the decisions made by , Brodie Yeung MD.
== END 2018-03-08 12:02 | disposition home or self-care (01) ==
LOC: ED 08:40
DX: T78.40XA Allergy, unspecified, initial encounter (principal); X58.XXXA Exposure to other specified factors, initial encounter; N39.0 Urinary tract infection, site not specified
CPT/HCPCS: 36415; 80053; 81003; 81015; 85025; 86140; 87086; 87651; 96360; 96374; 96375; 99283; J1100; J1200

== ENCOUNTER 2019-06-18 05:51 | Day surgery (SDC) | payer OTHER ==
[~2019-06-18 05:51] MED LIST: Buffered Lidocaine 1% SYRIN* 1 ML/SYRINGE INTRADERM ONE
[2019-06-18] MEDS ORDERED: oxyCODONE/Acetamin 5/325 MG* TAB PO PRN (05:53)
[2019-06-18] MEDS ORDERED: PROCHLORPERAZINE INJ 5 MG/ML 2 ML VIAL IV PRN (05:53)
[2019-06-18] MEDS ORDERED: Morphine 4 MG/ML VIAL (1 ml) 4 MG/ML VIAL IV PRN (05:53)
[2019-06-18] MEDS ORDERED: Scopolamine 1.5 mg* PATCH TRANSDERM PRN (05:53)
[2019-06-18] MEDS ORDERED: DiMENhydriNATE IV* 50 MG/ML VIAL IV PUSH PRN (05:53)
[2019-06-18] MEDS ORDERED: Naloxone* 0.4 MG/ML 1 ML VIAL IV PRN (05:53)
[2019-06-18] MEDS ORDERED: fentaNYL* 50 MCG/ML 2 ML VIAL (100 MCG VIAL) IV PRN (05:53)
[2019-06-18] MEDS ORDERED: Lactated Ringers 1000 ML Bag* 1,000 ML IV SCH (06:00)
[2019-06-18] MEDS ORDERED: Dexamethasone TAB* 4 MG PO ONE (06:00)
[2019-06-18] MEDS ORDERED: Famotidine IV* 10 MG/ML 2 ML (20 mg) IV ONE (06:00)
[2019-06-18] MEDS ORDERED: Ondansetron ODT TAB* 4 MG PO ONE (06:00)
[2019-06-18] MEDS ORDERED: Famotidine IV* 10 MG/ML 2 ML (20 mg) ONE (06:04)
[2019-06-18] MEDS ORDERED: Ondansetron ODT TAB* 4 MG ONE (06:04)
[2019-06-18] MEDS ORDERED: Dexamethasone TAB* 4 MG ONE (06:04)
[2019-06-18 06:15] VITALS: BP 112/80
[2019-06-18] MEDS ORDERED: KETAMINE HCL* 50 MG/ML 10 ML VIAL ONE (07:27)
[2019-06-18] MEDS ORDERED: Midazolam* 1 MG/ML 5 ML VIAL (5 MG) ONE (07:27)
[2019-06-18] MEDS ORDERED: fentaNYL* 50 MCG/ML 2 ML VIAL (100 MCG VIAL) ONE (07:27)
[2019-06-21] MEDS ORDERED: Scopolamine PATCH Remove* 1 NOTE MISC PATCH OFF ONE (05:54)
== END 2019-06-18 07:30 | disposition home or self-care (01) ==
LOC: OR 05:51
PROVIDERS: ATTEND Surgery
DX: R59.0 Localized enlarged lymph nodes (principal); M32.9 Systemic lupus erythematosus, unspecified; Z53.9 Procedure and treatment not carried out, unspecified reason
CPT/HCPCS: A9270-GY; J2250; J3010; J8540

== ENCOUNTER 2024-10-04 09:13 | Inpatient (IN) ==
[2024-10-04] MEDS: Ondansetron 4 mg VIAL 2 MG/ML 2 ml VIAL IV ONE (09:47)
[2024-10-04 09:54] LABS: ABS Lymphocytes 0.7 10^3/uL (1.0-4.8); ABS Monocytes 0.3 10^3/uL (0.0-0.9); ABS Neutrophils 3.9 10^3/uL (1.5-7.6); Eosinophil % 0.7 %; Hematocrit 31.2 % (35-45); Hemoglobin 10.5 g/dL (11.5-14.3); Lymphocyte % 13.6 %; Mean Corpuscular Hemoglobin 26.4 pg (27-33); Mean Corpuscular Hgb Conc 33.6 g/dL (31-36); Mean Corpuscular Volume 78.5 fL (80-97); Mean Platelet Volume 6.9 fL (7.5-11.2); Nucleated Red Blood Cells % 0.1 %/100WBC (0.0-0.8); Platelet Count 186 10^3/uL (150-450); Red Blood Count 3.97 10^6/uL (3.63-4.92); Red Cell Distribution Width 15.9 % (12-17)
[2024-10-04 10:01] LABS: INR 0.96 (0.85-1.14)
[2024-10-04 10:45] LABS: Albumin 3.4 g/dL (3.2-5.2); Albumin/Globulin Ratio 1.1 (1-3); Calcium 9.7 mg/dL (8.6-10.3); Creatinine, Serum 0.82 mg/dL (0.51-0.95); Globulin 3.2 g/dL (2-4); Potassium 3.8 mmol/L (3.5-5.0); Total Bilirubin 0.4 mg/dL (0.2-1.0); Total Protein 6.6 g/dL (6.4-8.9); eGFR CKD-EPI 85.5 (>60)
[2024-10-04] MEDS: Iohexol 350 (CONTRAST) 500 ML MDV IV ONE (11:17)
[2024-10-04 12:01] LABS: High Sensitivity Troponin 1 Hr 9 pg/mL (<15)
[2024-10-04] MEDS ORDERED: Heparin 5000 UNITS/ML 1 mL VIAL ONE (12:18)
[2024-10-04] MEDS ORDERED: Heparin DRIP 25,000 UNITS BAG 25,000 UNITS/250 ML BAG IV ONE (12:18)
[2024-10-04] MEDS: Heparin 5000 UNITS/ML 1 mL VIAL IV SCH (12:25)
[2024-10-04] MEDS: Heparin DRIP 25,000 UNITS BAG 25,000 UNITS/250 ML BAG IV SCH (12:26)
[2024-10-04 13:12] LABS: ABS Lymphocytes 0.8 10^3/uL (1.0-4.8); ABS Monocytes 0.3 10^3/uL (0.0-0.9); ABS Neutrophils 3.3 10^3/uL (1.5-7.6); Eosinophil % 0.8 %; Hematocrit 29.7 % (35-45); Hemoglobin 9.9 g/dL (11.5-14.3); Lymphocyte % 17.4 %; Mean Corpuscular Hemoglobin 26.4 pg (27-33); Mean Corpuscular Hgb Conc 33.5 g/dL (31-36); Mean Corpuscular Volume 78.8 fL (80-97); Mean Platelet Volume 7.6 fL (7.5-11.2); Nucleated Red Blood Cells % 0.1 %/100WBC (0.0-0.8); Platelet Count 186 10^3/uL (150-450); Red Blood Count 3.77 10^6/uL (3.63-4.92); White Blood Count 4.5 10^3/uL (3.8-11.8)
[2024-10-04 13:21] LABS: Blood Urea Nitrogen 22 mg/dL (6-24); Creatinine, Serum 0.81 mg/dL (0.51-0.95); eGFR CKD-EPI 86.7 (>60)
[2024-10-04] MEDS ORDERED: Sulfur Hexaflouride MICROSPHR 25 MG VIAL IV PRN (13:59)
[2024-10-04 14:42] LABS: % Iron Saturation 10 % (15-55); .Transferrin 184 mg/dL (203-362); Iron 26 ug/dL (50-212); Total Iron Binding Capacity 258 mcg/dL (250-450); Unsaturated Iron Binding 232 ug/dL
[2024-10-04 14:58] LABS: TSH Ultra Thyroid Stim Horm 7.49 mcIU/mL (0.34-5.60)
[2024-10-04 15:06] LABS: Ferritin 77.3 ng/mL (11-307)
[2024-10-04 15:09] LABS: Folate 15.38 ng/mL (5.90-24.80)
[2024-10-04 15:10] LABS: Vitamin B12 > 1450 pg/mL (180-914)
[2024-10-04] MEDS: Ondansetron 4 mg VIAL 2 MG/ML 2 ml VIAL IV PRN (16:15)
[2024-10-04] MEDS: Pantoprazole VIAL 40 MG VIAL IV SCH (22:06)
[2024-10-04] MEDS: Calcium Carb (TUMS) 500 mg CHEW TAB PO PRN (22:06)
[2024-10-05 03:58] LABS: HIV 4th Generation Nonreactive (Nonreactive)
[2024-10-05 06:48] LABS: ABS Eosinophils 0.1 10^3/uL (0.0-0.5); ABS Lymphocytes 0.9 10^3/uL (1.0-4.8); ABS Monocytes 0.4 10^3/uL (0.0-0.9); ABS Neutrophils 2.6 10^3/uL (1.5-7.6); Eosinophil % 2.4 %; Hemoglobin 10.2 g/dL (11.5-14.3); Lymphocyte % 22.1 %; Mean Corpuscular Hemoglobin 26.9 pg (27-33); Mean Corpuscular Hgb Conc 34.1 g/dL (31-36); Mean Platelet Volume 7.3 fL (7.5-11.2); Nucleated Red Blood Cells % 0.1 %/100WBC (0.0-0.8); Platelet Count 171 10^3/uL (150-450); Red Blood Count 3.79 10^6/uL (3.63-4.92); Red Cell Distribution Width 15.9 % (12-17)
[2024-10-05 07:08] LABS: Albumin 3.2 g/dL (3.2-5.2); Calcium 8.8 mg/dL (8.6-10.3); Creatinine, Serum 0.84 mg/dL (0.51-0.95); Globulin 3.1 g/dL (2-4); Magnesium 1.6 mg/dL (1.9-2.7); Potassium 3.5 mmol/L (3.5-5.0); Total Bilirubin 0.4 mg/dL (0.2-1.0); Total Protein 6.3 g/dL (6.4-8.9)
[2024-10-05] MEDS: Cholecalciferol (VIT D3) 1,000 unit TAB PO SCH (08:03)
[2024-10-05] MEDS: Magnesium Sulf 4 GM/100 ML IV 4,000 MG/100 ML BAG IVPB ONE (08:51)
[2024-10-05] MEDS: Morphine 2 MG/ML SYRINGE IV ONE ×2 (09:53→17:21)
[2024-10-05] MEDS: Ferric Gluconate IV 250 MG in NS 0.9% 250 ml 200 ML IVPB ONE (12:50)
[2024-10-05] MEDS: Lidocaine PATCH 5% PATCH TRANSDERM SCH (16:16)
[2024-10-05 17:08] LABS: Hematocrit 31.8 % (35-45); Hemoglobin 10.9 g/dL (11.5-14.3)
[2024-10-05] MEDS: Morphine 2 MG/ML SYRINGE ONE (17:24)
[2024-10-05] MEDS: Morphine 2 MG/ML SYRINGE IV PRN (18:39)
[2024-10-05] MEDS ORDERED: Morphine 2 MG/ML SYRINGE IV PRN (18:49)
[2024-10-05] MEDS: Iohexol 300 (CONTRAST) 10 ML SDV IV ONE (20:54)
[2024-10-06 06:16] LABS: ABS Eosinophils 0.1 10^3/uL (0.0-0.5); ABS Lymphocytes 0.8 10^3/uL (1.0-4.8); ABS Monocytes 0.3 10^3/uL (0.0-0.9); ABS Neutrophils 2.6 10^3/uL (1.5-7.6); Eosinophil % 3.1 %; Hematocrit 30.6 % (35-45); Hemoglobin 10.4 g/dL (11.5-14.3); Lymphocyte % 20.1 %; Mean Corpuscular Hemoglobin 26.9 pg (27-33); Mean Corpuscular Hgb Conc 34.1 g/dL (31-36); Mean Corpuscular Volume 79.1 fL (80-97); Mean Platelet Volume 7.3 fL (7.5-11.2); Nucleated Red Blood Cells % 0.1 %/100WBC (0.0-0.8); Platelet Count 167 10^3/uL (150-450); Red Blood Count 3.87 10^6/uL (3.63-4.92); Red Cell Distribution Width 16.1 % (12-17); White Blood Count 3.9 10^3/uL (3.8-11.8)
[2024-10-06 06:54] LABS: Calcium 8.6 mg/dL (8.6-10.3); Creatinine, Serum 0.79 mg/dL (0.51-0.95); Potassium 3.7 mmol/L (3.5-5.0); eGFR CKD-EPI 89.4 (>60)
[2024-10-06] MEDS: Ferric Gluconate IV 250 MG in NS 0.9% 250 ml 200 ML IVPB SCH (09:38)
[2024-10-06] MEDS: Lactated Ringers 1000 ml BAG 1,000 ML IV SCH (10:10)
[2024-10-06] MEDS: Morphine 2 MG/ML SYRINGE IV PRN (15:07)
[2024-10-06 15:14] LABS: Phosphorus 3.4 mg/dL (2.5-5.0); Uric Acid 9.9 mg/dL (2.3-6.6)
[2024-10-07 06:19] LABS: ABS Eosinophils 0.1 10^3/uL (0.0-0.5); ABS Lymphocytes 0.7 10^3/uL (1.0-4.8); ABS Monocytes 0.4 10^3/uL (0.0-0.9); ABS Neutrophils 4.2 10^3/uL (1.5-7.6); ABS Nucleated RBC 0.01 10^3/ul; Eosinophil % 2.7 %; Hemoglobin 10.5 g/dL (11.5-14.3); Lymphocyte % 13.6 %; Mean Corpuscular Hemoglobin 26.9 pg (27-33); Mean Corpuscular Volume 79.2 fL (80-97); Mean Platelet Volume 7.2 fL (7.5-11.2); Nucleated Red Blood Cells % 0.1 %/100WBC (0.0-0.8); Platelet Count 172 10^3/uL (150-450); Red Blood Count 3.92 10^6/uL (3.63-4.92); Red Cell Distribution Width 16.2 % (12-17); White Blood Count 5.5 10^3/uL (3.8-11.8)
[2024-10-07] MEDS: LORazepam 2 mg VIAL 1 ml IV PUSH ONE (09:49)
[2024-10-07] MEDS: NS 0.9% 1000 ml BAG 1,000 ML IV SCH ×2 (12:44→17:51)
[2024-10-07] MEDS: Lidocaine 2% PF 5 ML VIAL INJ ONE (12:57)
[2024-10-08] MEDS: NS 0.9% IVPB SCH (06:23)
[2024-10-08] MEDS: RASBURICASE IVPB SCH (06:23)
[2024-10-08 06:54] LABS: ABS Lymphocytes 0.9 10^3/uL (1.0-4.8); ABS Monocytes 0.3 10^3/uL (0.0-0.9); ABS Neutrophils 4.3 10^3/uL (1.5-7.6); ABS Nucleated RBC 0.01 10^3/ul; Eosinophil % 0.3 %; Hematocrit 30.1 % (35-45); Hemoglobin 10.4 g/dL (11.5-14.3); Lymphocyte % 15.7 %; Mean Corpuscular Hemoglobin 27.2 pg (27-33); Mean Corpuscular Hgb Conc 34.7 g/dL (31-36); Mean Corpuscular Volume 78.6 fL (80-97); Mean Platelet Volume 7.5 fL (7.5-11.2); Nucleated Red Blood Cells % 0.1 %/100WBC (0.0-0.8); Platelet Count 174 10^3/uL (150-450); Red Blood Count 3.83 10^6/uL (3.63-4.92); White Blood Count 5.5 10^3/uL (3.8-11.8)
[2024-10-08 07:17] LABS: Albumin 3.1 g/dL (3.2-5.2); Albumin/Globulin Ratio 1.2 (1-3); Calcium 8.4 mg/dL (8.6-10.3); Creatinine, Serum 0.7 mg/dL (0.51-0.95); Globulin 2.5 g/dL (2-4); Phosphorus 2.3 mg/dL (2.5-5.0); Total Bilirubin 0.5 mg/dL (0.2-1.0); Total Protein 5.6 g/dL (6.4-8.9); Uric Acid 6.5 mg/dL (2.3-6.6); eGFR CKD-EPI 103.4 (>60)
[2024-10-08 08:32] LABS: EBV Capsid Ag IgG Ab Positive (Negative); EBV Capsid Ag IgM Ab Negative (Negative); Epstein-Barr Nuclear Antigen Positive (Negative)
[2024-10-08] MEDS: Potassium Phosphate IV 10 MMOL in NS 0.9% 250 ml 250 ML IVPB ONE (08:51)
[2024-10-08] MEDS ORDERED: Meperidine 50 mg/ml SYRINGE 1 ml IV PRN (09:28)
[2024-10-08] MEDS ORDERED: Famotidine IV 10 MG/ML 2 ml VIAL (20 mg) IV SLOW PU PRN (09:28)
[2024-10-08] MEDS ORDERED: EPINEPHrine Anaphylaxis SYR CERTADOSE SYR KIT IM PRN (09:28)
[2024-10-08] MEDS ORDERED: methylPREDNISolone SOD SUCC 125 mg 2 ML VIAL IV PRN (09:32)
[2024-10-08] MEDS: RITUXIMAB ABBS IVPB ONE (09:36)
[2024-10-08] MEDS: NS 0.9% IVPB ONE (09:36)
[2024-10-08] MEDS: PALONOSETRON HCL 0.05 MG/ML (0.25 MG) SYRINGE (0.05 MG/ML) IV ONE (14:18)
[2024-10-08] MEDS: DOXORUBICIN IVPB ONE (14:20)
[2024-10-08] MEDS: vinCRIStine 2 MG in NS 0.9% 50 ML 50 ML IVPB ONE (14:39)
[2024-10-08 22:09] LABS: Phospholipid Ab IgG < 9.4 GPL; Phospholipid Ab IgM, S < 9.4 MPL
[2024-10-09 06:29] LABS: ABS Eosinophils 0.1 10^3/uL (0.0-0.5); ABS Lymphocytes 0.6 10^3/uL (1.0-4.8); ABS Monocytes 0.1 10^3/uL (0.0-0.9); ABS Neutrophils 6.5 10^3/uL (1.5-7.6); ABS Nucleated RBC 0.01 10^3/ul; Eosinophil % 1.1 %; Hematocrit 30.6 % (35-45); Hemoglobin 10.3 g/dL (11.5-14.3); Lymphocyte % 8.8 %; Mean Corpuscular Hemoglobin 26.6 pg (27-33); Mean Corpuscular Hgb Conc 33.5 g/dL (31-36); Mean Corpuscular Volume 79.2 fL (80-97); Mean Platelet Volume 7.6 fL (7.5-11.2); Nucleated Red Blood Cells % 0.1 %/100WBC (0.0-0.8); Platelet Count 180 10^3/uL (150-450); Red Blood Count 3.86 10^6/uL (3.63-4.92); Red Cell Distribution Width 16.1 % (12-17); White Blood Count 7.4 10^3/uL (3.8-11.8)
[2024-10-09 07:07] LABS: ALT 91 U/L (7-52); AST 174 U/L (13-39); Albumin 2.9 g/dL (3.2-5.2); Albumin/Globulin Ratio 1.2 (1-3); Alkaline Phosphatase 79 U/L (35-149); Anion Gap 6 mmol/L (2-16); Blood Urea Nitrogen 23 mg/dL (6-24); CO2 Carbon Dioxide 26 mmol/L (22-32); Calcium 7.9 mg/dL (8.6-10.3); Chloride 108 mmol/L (101-111); Creatinine, Serum 0.63 mg/dL (0.51-0.95); Globulin 2.4 g/dL (2-4); Glucose 91 mg/dL (70-100); Potassium 4.1 mmol/L (3.5-5.0); Sodium 140 mmol/L (135-145); Total Bilirubin 0.3 mg/dL (0.2-1.0); Total Protein 5.3 g/dL (6.4-8.9); Uric Acid < 1.7 mg/dL (2.3-6.6)
[2024-10-09] MEDS: Polyethylene Glycol 3350 17 GM PACKET PO SCH (11:42)
[2024-10-09 13:08] LABS: Beta 2 Glycoprotein IgG <9.4 SGU
[2024-10-10 06:08] LABS: Albumin 2.9 g/dL (3.2-5.2); Albumin/Globulin Ratio 1.1 (1-3); Calcium 8.2 mg/dL (8.6-10.3); Creatinine, Serum 0.6 mg/dL (0.51-0.95); Globulin 2.6 g/dL (2-4); Phosphorus 3.3 mg/dL (2.5-5.0); Potassium 4.4 mmol/L (3.5-5.0); Total Bilirubin 0.4 mg/dL (0.2-1.0); Total Protein 5.5 g/dL (6.4-8.9); Uric Acid 3.8 mg/dL (2.3-6.6); eGFR CKD-EPI 107.3 (>60)
[2024-10-10] MEDS: Rasburicase 1.5 MG VIAL(NF) IVPB SCH (06:14)
[2024-10-10 09:32] VITALS: BP 127/79
[2024-10-17 12:22] LABS: BM Referral Reason PE; BM Result Summary Normal
== END 2024-10-10 14:14 | disposition home health service (06) | DRG 175 ==
LOC: ED 09:13 → EDHOLD 09:13 → MEDTELE 14:18
PROVIDERS: ADMIT Student in an Organized Health Care Education/Training Program; ATTEND Hospitalist